=== PATIENT | female | born 1995 | race Caucasian/White ===

== ENCOUNTER 2018-05-11 06:50 | Day surgery (SDC) | payer OTHER ==
[2018-05-10 09:56] VITALS: BMI 30.1
[2018-05-11 07:32] VITALS: TEMP 98.5
[2018-05-11] MEDS ORDERED: KETAMINE HCL SYRINGES 150 MG/3 ML ONE (08:35)
--- NOTE | 2018-05-11 09:16 | HP ---
CHIEF COMPLAINT: Major depressive disorder PCP: None Primary Psychiatrist: Dr. Dumont [place] HISTORY OF PRESENT ILLNESS: 22 year-old female with a PMH significant for bipolar and major depressive disorders, presents today for ECT therapy. Patient's first ECT therapy was on at [place]. Recent Events: * none reported PAST MEDICAL HISTORY: Bipolar disorder Major depressive disorder PAST SURGICAL HISTORY: None Social History: lives in [place] with mother, unemployed Smoking: "I vape" Alcohol: denies Drugs: denies Allergies No Known Drug Allergies Allergy (Verified 05/10/18 09:41) HOME MEDICATIONS: Home Medications Medication Instructions Recorded Quetiapine Fumarate [Seroquel -] 200 mg PO HS 05/10/18 REVIEW OF SYSTEMS CONSTITUTIONAL: Absent: fever, chills, diaphoresis, generalized weakness, malaise, loss of appetite, weight change HEENT: Absent: rhinorrhea, nasal congestion, throat pain, throat swelling, difficulty swallowing, mouth swelling, ear pain, eye pain, visual changes CARDIOVASCULAR: Absent: chest pain, syncope, palpitations, irregular heart rate, lightheadedness , peripheral edema RESPIRATORY: Absent: cough, shortness of breath, dyspnea with exertion, orthopnea, wheezing, stridor, hemoptysis GASTROINTESTINAL: Absent: abdominal pain, abdominal distension, nausea, vomiting, diarrhea, constipation, melena, hematochezia GENITOURINARY: Absent: dysuria, frequency, urgency, hesitancy, hematuria, flank pain, genital pain MUSCULOSKELETAL: Absent: myalgia, arthralgia, joint swelling, back pain, neck pain SKIN: Absent: rash, itching, pallor HEMATOLOGIC/IMMUNOLOGIC: Absent: easy bleeding, easy bruising, lymphadenopathy, frequent infections ENDOCRINE: Absent: unexplained weight gain, unexplained weight loss, heat intolerance, cold intolerance NEUROLOGIC: Absent: headache, focal weakness or paresthesias, dizziness, unsteady gait, seizure, mental status changes, bladder or bowel incontinence PHYSICAL EXAMINATION Vital Signs - 24 hr 05/11/18 05/11/18 05/11/18 07:23 09:00 09:05 Temperature 98.5 F Pulse Rate 74 99 H 92 H Respiratory 18 16 14 Rate Blood Pressure 97/51 L 120/62 108/70 O2 Sat by Pulse 98 95 100 Oximetry (%) GENERAL: Awake, alert, and fully oriented, in no acute distress. HEAD: Normal with no signs of trauma. EYES: Pupils equal, round and reactive to light, sclera anicteric, conjunctiva clear. LUNGS: Breath sounds equal, clear to auscultation bilaterally. No wheezes, and no crackles. No accessory muscle use. HEART: Regular rate and rhythm, normal S1 and S2 ABDOMEN: Soft, nontender, not distended MUSCULOSKELETAL: Normal range of motion at all joints. No bony deformities or tenderness. No CVA tenderness. UPPER EXTREMITIES: 2+ pulses, warm, well-perfused. No cyanosis. No clubbing. No peripheral edema. LOWER EXTREMITIES: 2+ pulses, warm, well-perfused. No calf tenderness. No peripheral edema. NEUROLOGICAL: Cranial nerves II-XII intact. Normal speech. Laboratory Results - last 24 hr 05/11/18 07:35 Urine HCG, Qual Negative ASSESSMENT/PLAN: 22 year-old female with a PMH significant for bipolar and major depressive disorders, presents today for ECT therapy. Cardiac --no cardiac history --Revised Cardiac Risk Index for Pre-Operative Risk: 0 points, 0.4% risk of major cardiac event Pulmonary --no pulmonary history Neurological --no neurological or neurosurgical history; no history of trauma Anesthesia --no reported problems with anesthesia ECT is a low risk procedure. The relative benefits of the planned procedure outweigh the relative risks for this patient at this time. Visit type - Emergency Visit Emergency Visit: No - New Patient This patient is new to me today: Yes Date on this admission: 05/11/18 - Critical Care Critical Care patient: No
[2018-05-11 10:43] VITALS: BP 103/73; PULSE 69
[2018-05-11] MEDS ORDERED: ONDANSETRON 4 MG/2 ML VIAL IVPUSH PRN (12:05)
[2018-05-11] MEDS ORDERED: LACTATED RINGERS SOLUTION 1,000 ML IV SCH (12:15)
== END 2018-05-11 10:00 | disposition home or self-care (01) ==
LOC: FECT 06:50
PROVIDERS: ATTEND Psychiatry & Neurology Psychiatry
PROC: GZB4ZZZ Other Electroconvulsive Therapy (ICD-10-PCS; principal; 2018-05-11 08:15)
DX: F31.60 Bipolar disorder, current episode mixed, unspecified (principal); F33.9 Major depressive disorder, recurrent, unspecified
CPT/HCPCS: 84703; 90870; 94760

== ENCOUNTER 2018-05-12 05:43 | Day surgery (SDC) | payer OTHER ==
[2018-05-11 10:47] VITALS: BMI 30.1
[2018-05-12 10:26] VITALS: TEMP 97.9
[2018-05-12 10:32] VITALS: BP 122/76; PULSE 86
== END 2018-05-12 09:00 | disposition home or self-care (01) ==
LOC: FECT 05:43
PROVIDERS: ATTEND Psychiatry & Neurology Psychiatry
PROC: GZB4ZZZ Other Electroconvulsive Therapy (ICD-10-PCS; principal; 2018-05-12 07:30)
DX: F31.60 Bipolar disorder, current episode mixed, unspecified (principal); F33.9 Major depressive disorder, recurrent, unspecified
CPT/HCPCS: 90870; 94760

== ENCOUNTER 2018-05-17 05:44 | Day surgery (SDC) | payer OTHER ==
[2018-05-17 06:46] VITALS: TEMP 98.2; BMI 30.1
[2018-05-17 09:39] VITALS: BP 121/81; PULSE 105
== END 2018-05-17 08:20 | disposition home or self-care (01) ==
LOC: FECT 05:44
PROVIDERS: ATTEND Psychiatry & Neurology Psychiatry
PROC: GZB4ZZZ Other Electroconvulsive Therapy (ICD-10-PCS; principal; 2018-05-17 07:15)
DX: F31.9 Bipolar disorder, unspecified (principal)
CPT/HCPCS: 84703; 90870; 94760

== ENCOUNTER 2018-05-19 05:49 | Day surgery (SDC) | payer OTHER ==
[2018-05-19 07:36] VITALS: BMI 30.1
[2018-05-19 09:49] VITALS: BP 116/72; PULSE 86; TEMP 98.5
[2018-05-19] MEDS ORDERED: LACTATED RINGERS SOLUTION 1,000 ML IV SCH (16:45)
== END 2018-05-19 09:20 | disposition home or self-care (01) ==
LOC: FECT 05:49
PROVIDERS: ATTEND Psychiatry & Neurology Psychiatry
PROC: GZB4ZZZ Other Electroconvulsive Therapy (ICD-10-PCS; principal; 2018-05-19 07:00)
DX: F31.9 Bipolar disorder, unspecified (principal)
CPT/HCPCS: 90870; 94760

== ENCOUNTER 2018-08-31 06:59 | Day surgery (SDC) | payer OTHER ==
--- NOTE | 2018-08-31 07:26 | HP ---
Patient Name: Becca SNIDER Record Number: [id number] Date of : [birth year] Patient Status: Surgical Day Care Attending Provider: Larry Horn Date: 08/31/2018 Initialization Date: 05/11/18 09:12 CHIEF COMPLAINT: Major depressive disorder PCP: None Primary Psychiatrist: Jeronimo Armando [place] HISTORY OF PRESENT ILLNESS: 22 year-old female with a PMH significant for bipolar and major depressive disorders, presents today for ECT therapy. Patient's first ECT therapy was on at [place]. Recent Events: * Patient states she has an abnomal Pap smear last month-no treatment & will follow up with [facility] in 2 years PAST MEDICAL HISTORY: Bipolar disorder Major depressive disorder PAST SURGICAL HISTORY: None Social History: lives in [place] with mother, unemployed Smoking: "I vape" Alcohol: denies Drugs: denies Allergies No Known Drug Allergies Allergy (Verified 09/03/2018 HOME MEDICATIONS: Home Medications Medication Instructions Recorded Quetiapine Fumarate [Seroquel -] 200 mg PO HS 05/10/18 REVIEW OF SYSTEMS CONSTITUTIONAL: Absent: fever, chills, diaphoresis, generalized weakness, malaise, loss of appetite, weight change HEENT: Absent: rhinorrhea, nasal congestion, throat pain, throat swelling, difficulty swallowing, mouth swelling, ear pain, eye pain, visual changes CARDIOVASCULAR: Absent: chest pain, syncope, palpitations, irregular heart rate, lightheadedness , peripheral edema RESPIRATORY: Absent: cough, shortness of breath, dyspnea with exertion, orthopnea, wheezing, stridor, hemoptysis GASTROINTESTINAL: Absent: abdominal pain, abdominal distension, nausea, vomiting, diarrhea, constipation, melena, hematochezia GENITOURINARY: Absent: dysuria, frequency, urgency, hesitancy, hematuria, flank pain, genital pain MUSCULOSKELETAL: Absent: myalgia, arthralgia, joint swelling, back pain, neck pain SKIN: Absent: rash, itching, pallor HEMATOLOGIC/IMMUNOLOGIC: Absent: easy bleeding, easy bruising, lymphadenopathy, frequent infections ENDOCRINE: Absent: unexplained weight gain, unexplained weight loss, heat intolerance, cold intolerance NEUROLOGIC: Absent: headache, focal weakness or paresthesias, dizziness, unsteady gait, seizure, mental status changes, bladder or bowel incontinence PHYSICAL EXAMINATION Vital Signs - 24 hr 05/11/18 05/11/18 05/11/18 07:23 09:00 09:05 Temperature 98.5 F Pulse Rate 74 99 H 92 H Respiratory 18 16 14 Rate Blood Pressure 97/51 L 120/62 108/70 O2 Sat by Pulse 98 95 100 Oximetry (%) GENERAL: Awake, alert, and fully oriented, in no acute distress. HEAD: Normal with no signs of trauma. EYES: Pupils equal, round and reactive to light, sclera anicteric, conjunctiva clear. LUNGS: Breath sounds equal, clear to auscultation bilaterally. No wheezes, and no crackles. No accessory muscle use. HEART: Regular rate and rhythm, normal S1 and S2 ABDOMEN: Soft, nontender, not distended MUSCULOSKELETAL: Normal range of motion at all joints. No bony deformities or tenderness. No CVA tenderness. UPPER EXTREMITIES: 2+ pulses, warm, well-perfused. No cyanosis. No clubbing. No peripheral edema. LOWER EXTREMITIES: 2+ pulses, warm, well-perfused. No calf tenderness. No peripheral edema. NEUROLOGICAL: Cranial nerves II-XII intact. Normal speech. Laboratory Results - last 24 hr 05/11/18 07:35 Urine HCG, Qual Negative ASSESSMENT/PLAN: 22 year-old female with a PMH significant for bipolar and major depressive disorders, presents today for ECT therapy. Cardiac --no cardiac history --Revised Cardiac Risk Index for Pre-Operative Risk: 0 points, 0.4% risk of major cardiac event Pulmonary --no pulmonary history Neurological --no neurological or neurosurgical history; no history of trauma Anesthesia --no reported problems with anesthesia ECT is a low risk procedure. The relative benefits of the planned procedure outweigh the relative risks for this patient at this time. Visit type - Emergency Visit Emergency Visit: No - New Patient This patient is new to me today: Yes Date on this admission: 05/11/18 - Critical Care Critical Care patient: No
--- NOTE | 2018-08-31 07:27 | HP ---
CHIEF COMPLAINT: PCP: Larry Horn Primary Psychiatrist:Dr. Dumont [place] HISTORY OF PRESENT ILLNESS: 22 year-old female with a PMH significant for bipolar and major depressive disorders, presents today for ECT therapy. Patient's first ECT therapy was on at [place]. Recent Events: * Patient states she has an abnomal Pap smear last month-no treatment & will follow up with [facility] in 2 years PAST MEDICAL HISTORY: Bipolar Major depressive disorder PAST SURGICAL HISTORY: Social History: lives in [place] with mother, unemployed Smoking: stopped vaping Alcohol: denies Drugs: denies Allergies No Known Drug Allergies Allergy (Verified 09/03/2018 HOME MEDICATIONS: Home Medications Medication Instructions Recorded Quetiapine Fumarate [Seroquel -] 200 mg PO HS 05/10/18 Alprazolam [Xanax] 0.25 mg PO Q8H PRN 05/17/18 REVIEW OF SYSTEMS CONSTITUTIONAL: Absent: fever, chills, diaphoresis, generalized weakness, malaise, loss of appetite, weight change HEENT: Absent: rhinorrhea, nasal congestion, throat pain, throat swelling, difficulty swallowing, mouth swelling, ear pain, eye pain, visual changes CARDIOVASCULAR: Absent: chest pain, syncope, palpitations, irregular heart rate, lightheadedness , peripheral edema RESPIRATORY: Absent: cough, shortness of breath, dyspnea with exertion, orthopnea, wheezing, stridor, hemoptysis GASTROINTESTINAL: Absent: abdominal pain, abdominal distension, nausea, vomiting, diarrhea, constipation, melena, hematochezia GENITOURINARY: Absent: dysuria, frequency, urgency, hesitancy, hematuria, flank pain, genital pain MUSCULOSKELETAL: Absent: myalgia, arthralgia, joint swelling, back pain, neck pain SKIN: Absent: rash, itching, pallor HEMATOLOGIC/IMMUNOLOGIC: Absent: easy bleeding, easy bruising, lymphadenopathy, frequent infections ENDOCRINE: Absent: unexplained weight gain, unexplained weight loss, heat intolerance, cold intolerance NEUROLOGIC: Absent: headache, focal weakness or paresthesias, dizziness, unsteady gait, seizure, mental status changes, bladder or bowel incontinence PHYSICAL EXAMINATION GENERAL: Awake, alert, and fully oriented, in no acute distress. HEAD: Normal with no signs of trauma. EYES: Pupils equal, round and reactive to light, sclera anicteric, conjunctiva clear. LUNGS: Breath sounds equal, clear to auscultation bilaterally. No wheezes, and no crackles. No accessory muscle use. HEART: Regular rate and rhythm, normal S1 and S2 ABDOMEN: Soft, nontender, not distended MUSCULOSKELETAL: Normal range of motion at all joints. No bony deformities or tenderness. No CVA tenderness. UPPER EXTREMITIES: 2+ pulses, warm, well-perfused. No cyanosis. No clubbing. No peripheral edema. LOWER EXTREMITIES: 2+ pulses, warm, well-perfused. No calf tenderness. No peripheral edema. NEUROLOGICAL: Cranial nerves II-XII intact. Normal speech. ASSESSMENT/PLAN: 22 year-old female with a PMH significant for bipolar and major depressive disorders, presents today for ECT therapy. T 98, HR 92, BP 111/73 O2 97% on RA Cardiac --no cardiac history --Revised Cardiac Risk Index for Pre-Operative Risk: 0 points, 0.4% risk of major cardiac event Pulmonary --no pulmonary history Neurological --no neurological or neurosurgical history; no history of trauma Anesthesia --no reported problems with anesthesia ECT is a low risk procedure. The relative benefits of the planned procedure outweigh the relative risks for this patient at this time. Problem List - Problem (1) Major depressive disorder Assessment/Plan: continue home dose of seroquel 200mg & xnanax 0.25 mg PRN no contraindications for planned ECT Code(s): F32.9 - MAJOR DEPRESSIVE DISORDER, SINGLE EPISODE, UNSPECIFIED (2) Bipolar 1 disorder Code(s): F31.9 - BIPOLAR DISORDER, UNSPECIFIED Visit type - Emergency Visit Emergency Visit: No - New Patient This patient is new to me today: Yes Date on this admission: 08/31/18 - Critical Care Critical Care patient: No
[2018-08-31 07:37] VITALS: TEMP 98; BMI 33.7
[2018-08-31] MEDS ORDERED: KETAMINE HCL 500 MG/10 ML VIAL ONE (08:04)
[2018-08-31 09:44] VITALS: BP 113/73; PULSE 88
== END 2018-08-31 09:20 | disposition home or self-care (01) ==
LOC: SUATTDRO 06:59 → FECT 06:59
PROVIDERS: ATTEND Psychiatry & Neurology Psychiatry
PROC: GZB4ZZZ Other Electroconvulsive Therapy (ICD-10-PCS; principal; 2018-08-31 07:45)
DX: F31.60 Bipolar disorder, current episode mixed, unspecified (principal)
CPT/HCPCS: 81025; 90870; 94760

== ENCOUNTER 2018-09-08 05:48 | Day surgery (SDC) | payer OTHER ==
[2018-08-31 12:37] VITALS: BMI 33.7
[2018-09-08 08:37] VITALS: TEMP 98.1
[2018-09-08 08:38] VITALS: BP 102/61; PULSE 71
== END 2018-09-08 08:42 | disposition home or self-care (01) ==
LOC: FECT 05:48
PROVIDERS: ATTEND Psychiatry & Neurology Psychiatry
PROC: GZB4ZZZ Other Electroconvulsive Therapy (ICD-10-PCS; principal; 2018-09-08 07:45)
DX: F31.89 Other bipolar disorder (principal)
CPT/HCPCS: 81025; 90870; 94760

== ENCOUNTER 2018-09-15 05:43 | Day surgery (SDC) | payer OTHER ==
[2018-09-08 10:51] VITALS: BMI 33.7
[2018-09-15] MEDS ORDERED: LACTATED RINGERS SOLUTION 1,000 ML IV SCH (07:00)
[2018-09-15 07:22] VITALS: TEMP 97.8
[2018-09-15 10:08] VITALS: BP 107/77; PULSE 88
== END 2018-09-15 09:25 | disposition home or self-care (01) ==
LOC: FECT 05:43
PROVIDERS: ATTEND Psychiatry & Neurology Psychiatry
PROC: GZB4ZZZ Other Electroconvulsive Therapy (ICD-10-PCS; principal; 2018-09-15 07:15)
DX: F31.60 Bipolar disorder, current episode mixed, unspecified (principal)
CPT/HCPCS: 81025; 90870; 94760

== ENCOUNTER 2018-09-18 05:48 | Day surgery (SDC) | payer OTHER ==
[2018-09-15 11:39] VITALS: BMI 33.7
[2018-09-18] MEDS ORDERED: ACETAMINOPHEN 500 MG TABLET (FP) PO PRN (07:28)
[2018-09-18] MEDS ORDERED: PROMETHAZINE HCL 25 MG/1 ML VIAL IVPUSH PRN (07:28)
[2018-09-18] MEDS ORDERED: LACTATED RINGERS SOLUTION 1,000 ML IV SCH (07:30)
[2018-09-18 08:34] VITALS: TEMP 98.4
[2018-09-18 08:43] VITALS: BP 112/63; PULSE 76
== END 2018-09-18 08:45 | disposition home or self-care (01) ==
LOC: FECT 05:48
PROVIDERS: ATTEND Psychiatry & Neurology Psychiatry
PROC: GZB4ZZZ Other Electroconvulsive Therapy (ICD-10-PCS; principal; 2018-09-18 07:15)
DX: F31.60 Bipolar disorder, current episode mixed, unspecified (principal)
CPT/HCPCS: 90870; 94760

== ENCOUNTER 2018-10-03 07:20 | Day surgery (SDC) | payer OTHER ==
--- NOTE | 2018-10-03 07:30 | HP ---
CHIEF COMPLAINT: Major depressive disorder PCP: None Primary Psychiatrist: Dr. Dumont [place] HISTORY OF PRESENT ILLNESS: 22 year-old female with a PMH significant for bipolar and major depressive disorders, presents today for ECT therapy. Patient's first ECT therapy was on at [place]. Recent Events: (mother provides, patient not speaking, no eye contact) * URI few weeks ago, considered viral, no antibiotics * following with [facility] re: irregular PAP and IUD exchange PAST MEDICAL HISTORY: Bipolar disorder Major depressive disorder PAST SURGICAL HISTORY: None Social History: lives in [place] with mother, unemployed Smoking: denies Alcohol: denies Drugs: denies Allergies No Known Drug Allergies Allergy (Verified 05/10/18 09:41) HOME MEDICATIONS: Home Medications Medication Instructions Recorded Quetiapine Fumarate [Seroquel -] 100 mg PO HS 05/10/18 Alprazolam [Xanax] 0.25 mg PO HS PRN 05/17/18 Ondansetron HCl [Zofran] 8 mg PO DAILY PRN 08/31/18 REVIEW OF SYSTEMS CONSTITUTIONAL: Absent: fever, chills, diaphoresis, generalized weakness, malaise, loss of appetite, weight change HEENT: Absent: rhinorrhea, nasal congestion, throat pain, throat swelling, difficulty swallowing, mouth swelling, ear pain, eye pain, visual changes CARDIOVASCULAR: Absent: chest pain, syncope, palpitations, irregular heart rate, lightheadedness , peripheral edema RESPIRATORY: Absent: cough, shortness of breath, dyspnea with exertion, orthopnea, wheezing, stridor, hemoptysis GASTROINTESTINAL: Absent: abdominal pain, abdominal distension, nausea, vomiting, diarrhea, constipation, melena, hematochezia GENITOURINARY: Absent: dysuria, frequency, urgency, hesitancy, hematuria, flank pain, genital pain MUSCULOSKELETAL: Absent: myalgia, arthralgia, joint swelling, back pain, neck pain SKIN: Absent: rash, itching, pallor HEMATOLOGIC/IMMUNOLOGIC: Absent: easy bleeding, easy bruising, lymphadenopathy, frequent infections ENDOCRINE: Absent: unexplained weight gain, unexplained weight loss, heat intolerance, cold intolerance NEUROLOGIC: Absent: headache, focal weakness or paresthesias, dizziness, unsteady gait, seizure, mental status changes, bladder or bowel incontinence PHYSICAL EXAMINATION GENERAL: Awake, alert, and fully oriented, in no acute distress. HEAD: Normal with no signs of trauma. EYES: Pupils equal, round and reactive to light, sclera anicteric, conjunctiva clear. LUNGS: Breath sounds equal, clear to auscultation bilaterally. No wheezes, and no crackles. No accessory muscle use. HEART: Regular rate and rhythm, normal S1 and S2 ABDOMEN: Soft, nontender, not distended MUSCULOSKELETAL: Normal range of motion at all joints. No bony deformities or tenderness. No CVA tenderness. UPPER EXTREMITIES: 2+ pulses, warm, well-perfused. No cyanosis. No clubbing. No peripheral edema. LOWER EXTREMITIES: 2+ pulses, warm, well-perfused. No calf tenderness. No peripheral edema. NEUROLOGICAL: Cranial nerves II-XII intact. Normal speech. ASSESSMENT/PLAN: 22 year-old female with a PMH significant for bipolar and major depressive disorders, presents today for ECT therapy. Cardiac --no cardiac history --Revised Cardiac Risk Index for Pre-Operative Risk: 0 points, 0.4% risk of major cardiac event Pulmonary --no pulmonary history Neurological --no neurological or neurosurgical history; no history of trauma Anesthesia --no reported problems with anesthesia ECT is a low risk procedure. The relative benefits of the planned procedure outweigh the relative risks for this patient at this time. Visit type - Emergency Visit Emergency Visit: No - New Patient This patient is new to me today: Yes Date on this admission: 10/03/18 - Critical Care Critical Care patient: No
[2018-10-03 07:51] VITALS: BMI 33.7
[2018-10-03 10:03] VITALS: TEMP 98.7
[2018-10-03 10:18] VITALS: BP 108/78; PULSE 72
== END 2018-10-03 10:10 | disposition home or self-care (01) ==
LOC: FECT 07:20
PROVIDERS: ATTEND Psychiatry & Neurology Psychiatry
PROC: GZB4ZZZ Other Electroconvulsive Therapy (ICD-10-PCS; principal; 2018-10-03 08:15)
DX: F31.60 Bipolar disorder, current episode mixed, unspecified (principal)
CPT/HCPCS: 81025; 90870; 94760

== ENCOUNTER 2018-10-11 06:59 | Day surgery (SDC) | payer OTHER ==
[2018-10-11 07:17] VITALS: BMI 33.6
[2018-10-11 09:35] VITALS: TEMP 97.7
[2018-10-11 09:38] VITALS: BP 110/60; PULSE 73
== END 2018-10-11 09:30 | disposition home or self-care (01) ==
LOC: FECT 06:59
PROVIDERS: ATTEND Psychiatry & Neurology Psychiatry
PROC: GZB4ZZZ Other Electroconvulsive Therapy (ICD-10-PCS; principal; 2018-10-11 07:30)
DX: F31.62 Bipolar disorder, current episode mixed, moderate (principal)
CPT/HCPCS: 81025; 90870; 94760

== ENCOUNTER 2018-10-17 05:49 | Day surgery (SDC) | payer OTHER ==
[2018-10-13 15:31] VITALS: BMI 33.7
[2018-10-17] MEDS ORDERED: oxyCODONE HCL 5 MG TABLET PO PRN (08:48)
[2018-10-17 09:42] VITALS: TEMP 97.9
[2018-10-17 09:48] VITALS: BP 112/61; PULSE 79
== END 2018-10-17 09:50 | disposition home or self-care (01) ==
LOC: FECT 05:49
PROVIDERS: ATTEND Psychiatry & Neurology Psychiatry
PROC: GZB4ZZZ Other Electroconvulsive Therapy (ICD-10-PCS; principal; 2018-10-17 08:30)
DX: F31.62 Bipolar disorder, current episode mixed, moderate (principal)
CPT/HCPCS: 81025; 90870; 94760

== ENCOUNTER 2018-10-24 05:39 | Day surgery (SDC) | payer OTHER | END 2018-10-25 08:45 | disposition home or self-care (01) | LOC: FECT 05:39 ==

== ENCOUNTER 2018-11-10 05:41 | Day surgery (SDC) | payer OTHER ==
[2018-11-10 07:11] VITALS: BMI 29.7
[2018-11-10 07:14] LABS: BASO % 0.7 % (0-2.0); EOS % 1.2 % (0-4.5); HEMATOCRIT 39.5 % (32.4-45.2); HEMOGLOBIN 13.2 GM/dl (10.7-15.3); LYMPH % 43.3 % (8-40); MCH 29.6 pg (25.7-33.7); MCHC 33.3 g/dl (32.0-36.0); MEAN CELL VOLUME 88.8 fl (80-96); MEAN PLT VOLUME 6.8 fl (7.5-11.1); MONO % 8.6 % (3.8-10.2); NEUT % 46.2 % (42.8-82.8); PLATELET COUNT 409 K/MM3 (134-434); RBC 4.45 M/mm3 (3.60-5.2); RDW 13.7 % (11.6-15.6)
[2018-11-10 07:19] LABS: CALCIUM 8.8 mg/dl (8.5-10); CREATININE 0.7 mg/dl (0.55-1.3); POTASSIUM 3.9 mmol/L (3.5-5.1)
[2018-11-10 08:51] VITALS: TEMP 97.8
[2018-11-10 10:20] VITALS: BP 116/64; PULSE 76
--- NOTE | 2018-11-14 09:38 | EKG ---
Test Reason : Blood Pressure : / mmHG Vent. Rate : 072 BPM Atrial Rate : 072 BPM P-R Int : 158 ms QRS Dur : 092 ms QT Int : 412 ms P-R-T Axes : 000 107 136 degrees QTc Int : 451 ms NORMAL SINUS RHYTHM LATERAL INFARCT , AGE UNDETERMINED ABNORMAL ECG NO PREVIOUS ECGS AVAILABLE Confirmed by Cornell Evangelista MD ([id number]) on 11/14/2018 9:38:43 AM Referred By: Larry Horn Confirmed By:Cornell Evangelista MD
--- NOTE | 2018-11-14 10:19 | HP ---
CHIEF COMPLAINT: Major depressive disorder PCP: None Primary Psychiatrist: Dr. Dumont [place] HISTORY OF PRESENT ILLNESS: 22 year-old female with a PMH significant for bipolar and major depressive disorders, presents today for ECT therapy. Patient's first ECT therapy was on at [place]. Recent Events: * none reported * PAST MEDICAL HISTORY: Bipolar disorder Major depressive disorder PAST SURGICAL HISTORY: None Social History: lives in [place] with mother, unemployed Smoking: denies Alcohol: denies Drugs: denies Family history: non-contributory Allergies No Known Drug Allergies Allergy (Verified 05/10/18 09:41) HOME MEDICATIONS: Home Medications Medication Instructions Recorded Quetiapine Fumarate [Seroquel -] 100 mg PO HS 05/10/18 REVIEW OF SYSTEMS CONSTITUTIONAL: Absent: fever, chills, diaphoresis, generalized weakness, malaise, loss of appetite, weight change HEENT: Absent: rhinorrhea, nasal congestion, throat pain, throat swelling, difficulty swallowing, mouth swelling, ear pain, eye pain, visual changes CARDIOVASCULAR: Absent: chest pain, syncope, palpitations, irregular heart rate, lightheadedness , peripheral edema RESPIRATORY: Absent: cough, shortness of breath, dyspnea with exertion, orthopnea, wheezing, stridor, hemoptysis GASTROINTESTINAL: Absent: abdominal pain, abdominal distension, nausea, vomiting, diarrhea, constipation, melena, hematochezia GENITOURINARY: Absent: dysuria, frequency, urgency, hesitancy, hematuria, flank pain, genital pain MUSCULOSKELETAL: Absent: myalgia, arthralgia, joint swelling, back pain, neck pain SKIN: Absent: rash, itching, pallor HEMATOLOGIC/IMMUNOLOGIC: Absent: easy bleeding, easy bruising, lymphadenopathy, frequent infections ENDOCRINE: Absent: unexplained weight gain, unexplained weight loss, heat intolerance, cold intolerance NEUROLOGIC: Absent: headache, focal weakness or paresthesias, dizziness, unsteady gait, seizure, mental status changes, bladder or bowel incontinence PHYSICAL EXAMINATION Vital Signs Temperature 97.8 F 11/10/18 09:30 Pulse Rate 76 11/10/18 09:30 Respiratory Rate 18 11/10/18 09:30 Blood Pressure 116/64 11/10/18 09:30 O2 Sat by Pulse Oximetry (%) 98 11/10/18 09:20 GENERAL: Awake, alert, and fully oriented, in no acute distress. HEAD: Normal with no signs of trauma. EYES: Pupils equal, round and reactive to light, sclera anicteric, conjunctiva clear. LUNGS: Breath sounds equal, clear to auscultation bilaterally. No wheezes, and no crackles. No accessory muscle use. HEART: Regular rate and rhythm, normal S1 and S2 ABDOMEN: Soft, nontender, not distended MUSCULOSKELETAL: Normal range of motion at all joints. No bony deformities or tenderness. No CVA tenderness. UPPER EXTREMITIES: 2+ pulses, warm, well-perfused. No cyanosis. No clubbing. No peripheral edema. LOWER EXTREMITIES: 2+ pulses, warm, well-perfused. No calf tenderness. No peripheral edema. NEUROLOGICAL: Cranial nerves II-XII intact. Normal speech. ASSESSMENT/PLAN: 22 year-old female with a PMH significant for bipolar and major depressive disorders, presents today for ECT therapy. Cardiac --no cardiac history --Revised Cardiac Risk Index for Pre-Operative Risk: 0 points, 0.4% risk of major cardiac event Pulmonary --no pulmonary history Neurological --no neurological or neurosurgical history; no history of trauma Anesthesia --no reported problems with anesthesia ECT is a low risk procedure. The relative benefits of the planned procedure outweigh the relative risks for this patient at this time. Visit type - Emergency Visit Emergency Visit: No - New Patient This patient is new to me today: Yes Date on this admission: 11/14/18 - Critical Care Critical Care patient: No
== END 2018-11-10 09:30 | disposition home or self-care (01) ==
LOC: FECT 05:41
PROVIDERS: ATTEND Psychiatry & Neurology Psychiatry
PROC: GZB4ZZZ Other Electroconvulsive Therapy (ICD-10-PCS; principal; 2018-11-10 07:15)
DX: F31.89 Other bipolar disorder (principal)
CPT/HCPCS: 36415; 80048; 84703; 85025; 90870; 93005; 93010; 94760

== ENCOUNTER 2018-11-15 05:52 | Day surgery (SDC) | payer OTHER ==
[2018-11-10 16:58] VITALS: BMI 29.7
[2018-11-15] MEDS ORDERED: LACTATED RINGERS SOLUTION 1,000 ML IV SCH (07:00)
[2018-11-15 08:54] VITALS: PULSE 89; TEMP 98.9
[2018-11-15 08:59] VITALS: BP 115/72
== END 2018-11-15 08:45 | disposition home or self-care (01) ==
LOC: FECT 05:52
PROVIDERS: ATTEND Psychiatry & Neurology Psychiatry
PROC: GZB4ZZZ Other Electroconvulsive Therapy (ICD-10-PCS; principal; 2018-11-15 07:15)
DX: F31.9 Bipolar disorder, unspecified (principal)
CPT/HCPCS: 81025; 90870; 94760

== ENCOUNTER 2018-11-28 06:57 | Day surgery (SDC) | payer OTHER | END 2018-11-28 10:00 | disposition home or self-care (01) | LOC: FECT 06:57 ==

== ENCOUNTER 2018-12-21 05:45 | Day surgery (SDC) | payer OTHER ==
[2018-12-21 08:11] VITALS: TEMP 97.5; BMI 28.5
--- NOTE | 2018-12-21 08:23 | HP ---
CHIEF COMPLAINT: Major depressive disorder PCP: None Primary Psychiatrist: Dr. Dumont [place] HISTORY OF PRESENT ILLNESS: 22 year-old female with a PMH significant for bipolar and major depressive disorders, presents today for ECT therapy. Patient's first ECT therapy was on at [place]. Recent Events: * none reported * PAST MEDICAL HISTORY: Bipolar disorder Major depressive disorder PAST SURGICAL HISTORY: None Social History: lives in [place] with mother, unemployed Smoking: denies Alcohol: denies Drugs: denies Family history: non-contributory Allergies No Known Drug Allergies Allergy (Verified 10/30/18 17:17) HOME MEDICATIONS: Home Medications Medication Instructions Recorded Quetiapine Fumarate [Seroquel -] 100 mg PO HS 05/10/18 Alprazolam [Xanax] 0.25 mg PO Q8H PRN 12/21/18 REVIEW OF SYSTEMS CONSTITUTIONAL: Absent: fever, chills, diaphoresis, generalized weakness, malaise, loss of appetite, weight change HEENT: Absent: rhinorrhea, nasal congestion, throat pain, throat swelling, difficulty swallowing, mouth swelling, ear pain, eye pain, visual changes CARDIOVASCULAR: Absent: chest pain, syncope, palpitations, irregular heart rate, lightheadedness , peripheral edema RESPIRATORY: Absent: cough, shortness of breath, dyspnea with exertion, orthopnea, wheezing, stridor, hemoptysis GASTROINTESTINAL: Absent: abdominal pain, abdominal distension, nausea, vomiting, diarrhea, constipation, melena, hematochezia GENITOURINARY: Absent: dysuria, frequency, urgency, hesitancy, hematuria, flank pain, genital pain MUSCULOSKELETAL: Absent: myalgia, arthralgia, joint swelling, back pain, neck pain SKIN: Absent: rash, itching, pallor HEMATOLOGIC/IMMUNOLOGIC: Absent: easy bleeding, easy bruising, lymphadenopathy, frequent infections ENDOCRINE: Absent: unexplained weight gain, unexplained weight loss, heat intolerance, cold intolerance NEUROLOGIC: Absent: headache, focal weakness or paresthesias, dizziness, unsteady gait, seizure, mental status changes, bladder or bowel incontinence PHYSICAL EXAMINATION Vital Signs - 24 hr 12/21/18 08:07 Temperature 97.5 F L Pulse Rate 81 Respiratory 18 Rate Blood Pressure 122/73 O2 Sat by Pulse 97 Oximetry (%) GENERAL: Awake, alert, and fully oriented, in no acute distress. HEAD: Normal with no signs of trauma. EYES: Pupils equal, round and reactive to light, sclera anicteric, conjunctiva clear. LUNGS: Breath sounds equal, clear to auscultation bilaterally. No wheezes, and no crackles. No accessory muscle use. HEART: Regular rate and rhythm, normal S1 and S2 ABDOMEN: Soft, nontender, not distended MUSCULOSKELETAL: Normal range of motion at all joints. No bony deformities or tenderness. No CVA tenderness. UPPER EXTREMITIES: 2+ pulses, warm, well-perfused. No cyanosis. No clubbing. No peripheral edema. LOWER EXTREMITIES: 2+ pulses, warm, well-perfused. No calf tenderness. No peripheral edema. NEUROLOGICAL: Cranial nerves II-XII intact. Normal speech. Laboratory Results - last 24 hr 12/21/18 08:00 Urine HCG, Qual Negative ASSESSMENT/PLAN: 22 year-old female with a PMH significant for bipolar and major depressive disorders, presents today for ECT therapy. Cardiac --no cardiac history --Revised Cardiac Risk Index for Pre-Operative Risk: 0 points, 0.4% risk of major cardiac event Pulmonary --no pulmonary history Neurological --no neurological or neurosurgical history; no history of trauma Anesthesia --no reported problems with anesthesia ECT is a low risk procedure. The relative benefits of the planned procedure outweigh the relative risks for this patient at this time. Visit type - Emergency Visit Emergency Visit: No - New Patient This patient is new to me today: Yes Date on this admission: 12/21/18 - Critical Care Critical Care patient: No
[2018-12-21] MEDS ORDERED: ACETAMINOPHEN 325 MG TABLET (FP) PO PRN (08:58)
[2018-12-21] MEDS ORDERED: ONDANSETRON 4 MG/2 ML VIAL IVPUSH PRN (08:58)
[2018-12-21 09:55] VITALS: BP 110/67; PULSE 72
== END 2018-12-21 09:35 | disposition home or self-care (01) ==
LOC: FECT 05:45
PROVIDERS: ATTEND Psychiatry & Neurology Psychiatry
PROC: GZB4ZZZ Other Electroconvulsive Therapy (ICD-10-PCS; principal; 2018-12-21 08:15)
DX: F31.9 Bipolar disorder, unspecified (principal)
CPT/HCPCS: 84703; 90870; 94760

== ENCOUNTER 2018-12-29 05:43 | Day surgery (SDC) | payer OTHER ==
[2018-12-22 11:24] VITALS: BMI 28.5
[2018-12-29 07:01] VITALS: TEMP 98
[2018-12-29] MEDS ORDERED: LACTATED RINGERS SOLUTION 1,000 ML IV SCH (07:45)
[2018-12-29 08:37] VITALS: BP 116/76; PULSE 82
== END 2018-12-29 08:45 | disposition home or self-care (01) ==
LOC: FECT 05:43
PROVIDERS: ATTEND Psychiatry & Neurology Psychiatry
PROC: GZB4ZZZ Other Electroconvulsive Therapy (ICD-10-PCS; principal; 2018-12-29 07:00)
DX: F31.32 Bipolar disorder, current episode depressed, moderate (principal)
CPT/HCPCS: 81025; 90870; 94760

== ENCOUNTER 2019-01-04 05:41 | Day surgery (SDC) | payer OTHER ==
[2018-12-29 12:44] VITALS: BMI 28.5
[2019-01-04 08:39] VITALS: TEMP 98.1
[2019-01-04 08:40] VITALS: BP 102/71; PULSE 79
== END 2019-01-04 08:40 | disposition home or self-care (01) ==
LOC: FECT 05:41
PROVIDERS: ATTEND Psychiatry & Neurology Psychiatry
PROC: GZB4ZZZ Other Electroconvulsive Therapy (ICD-10-PCS; principal; 2019-01-04 07:45)
DX: F31.89 Other bipolar disorder (principal)
CPT/HCPCS: 81025; 90870; 94760

== ENCOUNTER 2019-01-09 05:44 | Day surgery (SDC) | payer OTHER ==
[2019-01-09 07:00] VITALS: BMI 28.5
[2019-01-09 08:22] VITALS: BP 94/63; PULSE 74; TEMP 98.8
== END 2019-01-09 08:20 | disposition home or self-care (01) ==
LOC: FECT 05:44
PROVIDERS: ATTEND Psychiatry & Neurology Psychiatry
PROC: GZB4ZZZ Other Electroconvulsive Therapy (ICD-10-PCS; principal; 2019-01-09 07:45)
DX: F31.32 Bipolar disorder, current episode depressed, moderate (principal)
CPT/HCPCS: 81025; 90870; 94760

== ENCOUNTER 2019-01-16 05:47 | Day surgery (SDC) | payer OTHER ==
[2019-01-16 06:45] VITALS: BMI 28.5
[2019-01-16 09:01] VITALS: TEMP 97.7
[2019-01-16 09:10] VITALS: BP 99/60; PULSE 77
== END 2019-01-16 09:15 | disposition home or self-care (01) ==
LOC: FECT 05:47
PROVIDERS: ATTEND Psychiatry & Neurology Psychiatry
PROC: GZB4ZZZ Other Electroconvulsive Therapy (ICD-10-PCS; principal; 2019-01-16 08:00)
DX: F31.32 Bipolar disorder, current episode depressed, moderate (principal)
CPT/HCPCS: 81025; 90870; 94760

== ENCOUNTER 2019-01-26 05:33 | Day surgery (SDC) | payer OTHER ==
[2019-01-26 07:13] VITALS: BMI 28.0
--- NOTE | 2019-01-26 07:24 | HP ---
CHIEF COMPLAINT: Major depressive disorder PCP: None Primary Psychiatrist: Dr. Dumont [place] HISTORY OF PRESENT ILLNESS: 22 year-old female with a PMH significant for bipolar and major depressive disorders, presents today for ECT therapy. Patient's first ECT therapy was on at [facility]. Recent Events: * none reported * PAST MEDICAL HISTORY: Bipolar disorder Major depressive disorder PAST SURGICAL HISTORY: None Social History: lives in [place] with mother, unemployed Smoking: denies Alcohol: denies Drugs: denies Family history: non-contributory Allergies No Known Drug Allergies Allergy (Verified 10/30/18 17:17) HOME MEDICATIONS: Home Medications Medication Instructions Recorded Quetiapine Fumarate [Seroquel -] 100 mg PO HS 05/10/18 Alprazolam [Xanax] 0.25 mg PO Q8H PRN 12/21/18 Zolpidem Tartrate [Ambien] 10 mg PO HS 12/29/18 REVIEW OF SYSTEMS CONSTITUTIONAL: Absent: fever, chills, diaphoresis, generalized weakness, malaise, loss of appetite, weight change HEENT: Absent: rhinorrhea, nasal congestion, throat pain, throat swelling, difficulty swallowing, mouth swelling, ear pain, eye pain, visual changes CARDIOVASCULAR: Absent: chest pain, syncope, palpitations, irregular heart rate, lightheadedness , peripheral edema RESPIRATORY: Absent: cough, shortness of breath, dyspnea with exertion, orthopnea, wheezing, stridor, hemoptysis GASTROINTESTINAL: Absent: abdominal pain, abdominal distension, nausea, vomiting, diarrhea, constipation, melena, hematochezia GENITOURINARY: Absent: dysuria, frequency, urgency, hesitancy, hematuria, flank pain, genital pain MUSCULOSKELETAL: Absent: myalgia, arthralgia, joint swelling, back pain, neck pain SKIN: Absent: rash, itching, pallor HEMATOLOGIC/IMMUNOLOGIC: Absent: easy bleeding, easy bruising, lymphadenopathy, frequent infections ENDOCRINE: Absent: unexplained weight gain, unexplained weight loss, heat intolerance, cold intolerance NEUROLOGIC: Absent: headache, focal weakness or paresthesias, dizziness, unsteady gait, seizure, mental status changes, bladder or bowel incontinence PHYSICAL EXAMINATION Vital Signs - 24 hr 01/26/19 07:09 Temperature 7.5 F L Pulse Rate 82 Respiratory 18 Rate Blood Pressure 90/58 L O2 Sat by Pulse 98 Oximetry (%) GENERAL: Awake, alert, and fully oriented, in no acute distress. HEAD: Normal with no signs of trauma. EYES: Pupils equal, round and reactive to light, sclera anicteric, conjunctiva clear. LUNGS: Breath sounds equal, clear to auscultation bilaterally. No wheezes, and no crackles. No accessory muscle use. HEART: Regular rate and rhythm, normal S1 and S2 ABDOMEN: Soft, nontender, not distended MUSCULOSKELETAL: Normal range of motion at all joints. No bony deformities or tenderness. No CVA tenderness. UPPER EXTREMITIES: 2+ pulses, warm, well-perfused. No cyanosis. No clubbing. No peripheral edema. LOWER EXTREMITIES: 2+ pulses, warm, well-perfused. No calf tenderness. No peripheral edema. NEUROLOGICAL: Cranial nerves II-XII intact. Normal speech. ASSESSMENT/PLAN: 22 year-old female with a PMH significant for bipolar and major depressive disorders, presents today for ECT therapy. Cardiac --no cardiac history --Revised Cardiac Risk Index for Pre-Operative Risk: 0 points, 0.4% risk of major cardiac event Pulmonary --no pulmonary history Neurological --no neurological or neurosurgical history; no history of trauma Anesthesia --no reported problems with anesthesia ECT is a low risk procedure. The relative benefits of the planned procedure outweigh the relative risks for this patient at this time. Visit type - Emergency Visit Emergency Visit: No - New Patient This patient is new to me today: Yes Date on this admission: 01/29/19 - Critical Care Critical Care patient: No
[2019-01-26] MEDS ORDERED: LACTATED RINGERS SOLUTION 1,000 ML IV SCH (08:00)
[2019-01-26 09:45] VITALS: TEMP 98.1
[2019-01-26 10:03] VITALS: BP 110/66; PULSE 76
== END 2019-01-26 09:55 | disposition home or self-care (01) ==
LOC: FECT 05:33
PROVIDERS: ATTEND Psychiatry & Neurology Psychiatry
PROC: GZB4ZZZ Other Electroconvulsive Therapy (ICD-10-PCS; principal; 2019-01-26 07:00)
DX: F31.32 Bipolar disorder, current episode depressed, moderate (principal)
CPT/HCPCS: 84703; 90870; 94760

== ENCOUNTER 2019-02-01 05:43 | Day surgery (SDC) | payer OTHER ==
[2019-02-01 07:25] VITALS: BMI 28.0
[2019-02-01 09:10] VITALS: TEMP 97.9
[2019-02-01 09:27] VITALS: BP 105/60; PULSE 82
== END 2019-02-01 09:28 | disposition home or self-care (01) ==
LOC: FECT 05:43
PROVIDERS: ATTEND Psychiatry & Neurology Psychiatry
PROC: GZB4ZZZ Other Electroconvulsive Therapy (ICD-10-PCS; principal; 2019-02-01 07:30)
DX: F31.9 Bipolar disorder, unspecified (principal)
CPT/HCPCS: 84703; 90870; 94760

== ENCOUNTER 2019-02-08 05:36 | Day surgery (SDC) | payer OTHER ==
[2019-02-08 06:57] VITALS: BMI 28.0
[2019-02-08] MEDS ORDERED: LACTATED RINGERS SOLUTION 1,000 ML IV SCH (08:00)
[2019-02-08 08:12] VITALS: TEMP 98.6
[2019-02-08 09:01] VITALS: BP 94/56; PULSE 75
== END 2019-02-08 09:03 | disposition home or self-care (01) ==
LOC: FECT 05:36
PROVIDERS: ATTEND Psychiatry & Neurology Psychiatry
PROC: GZB4ZZZ Other Electroconvulsive Therapy (ICD-10-PCS; principal; 2019-02-08 07:00)
DX: F32.9 Major depressive disorder, single episode, unspecified (principal)
CPT/HCPCS: 90870; 94760

== ENCOUNTER 2019-03-02 05:52 | Day surgery (SDC) | payer OTHER ==
[2019-02-28 16:31] VITALS: BMI 28.0
--- NOTE | 2019-03-02 07:41 | HP ---
Admitting History and Physical - Primary Care Physician PCP: Larry Horn - Admission Chief Complaint: Bipolar Disorder, Mixed Moderate History of Present Illness: 23 year old female with history bipolar disorder with major depression History Source: Patient Limitations to Obtaining History: No Limitations - Past Medical History [employer]: No: Alzheimer's, CVA, Dementia, Migraine, Multiple Sclerosis, Peripheral Neuropathy, Parkinson's, Seizure, Syncope, TIA, Vertigo, Other Cardiovascular: No: AFIB, Aneurysm, Aortic Insufficiency, Aortic Stenosis, CAD, CHF, Deep Vein Thrombosis, HTN, Hyperlipdemia, IA, Mitral Insufficiency, Mitral Stenosis, Murmur, Pulmonary Hypertension, Other Pulmonary: No: Asthma, Bronchitis, Cancer, COPD, O2 Dependent, Pneumonia, Previously Intubated, Pulmonary Embolus, Pulmonary Fibrosis, Sleep Apnea, Other Gastrointestinal: No: Ascites, Cancer, Constipation, Crohn's Disease, Diverticulitis, Diverticulosis, Esophageal Varices, Gastritis, GERD, GI Bleed, Hemorrhoids, Hiatal Hernia, Inflamatory Bowel Disease, Irritable Bowel Disease, Pancreatitis, Peptic Ulcer Disease, Ulcerative Colitis, Other Hepatobiliary: No: Cirrhosis, Cholelithiasis, Cholecystitis, Choledocholithiasis , Hepatitis A, Hepatitis B, Hepatitis C, Other Renal/: No: Renal Failure, Renal Inusuff, BPH, Cancer, Hematuria, Hemodialysis , Neurogenic Bladder, Renal Calculi, UTI, Other Reproductive: No: Ectopic , Endometriosis, Fibroids, PID, Polycystic Ovary Syndrome, Postmenopausal, Other ...LMP: 05/11/18 ...LMP Comment: HAS MIRENA/DOESNT HAVE MENSES ...: No Heme/Onc: No: Anemia, B12 Deficiency, Bleeding Disorder, Cancer, Current Chemotherapy, Current Radiation Therapy, Hemochromatosis, Hypercoaguable State, Myeloproliferative Synd, Sickle Cell Disease, Sickle Cell Trait, Thrombocytopenia, Other Infectious Disease: No: AIDS, C-Diff, Herpes Zoster, HIV, MRSA, STD's, Tuberculosis, VREF, Other Psych: Yes: Bipolar, Depression Musculoskeletal: No: Bursitis, Chronic low back pain, Hemiparesis, Hemiplegia, Osteoarthritis, Paraplegia, Other Rheumatology: No: Fibromyalgia, Gout, Lupus, Rheumatoid Arthritis, Sarcoidosis, Vasculitis, Other ENT: No: Allergic Rhinitis, Sinusitis, Other Endocrine: No: Dayton's Disease, Campo's Disease, Diabetes Insipidus, Diabetes Mellitus, Hyperparathyroidism, Hyperthyroidism, Hypothyroidism, Osteopenia, SIADH, Other - Past Surgical History Past Surgical History: No: None, AAA Repair, AICD, Amputation, Appendectomy, Arthrosocopy, AV Fistula/Graft, Bariatric Surgery, Breast Biopsy, Bypass, CABG, Carotid Endarterectomy, Cataract Removal, Cholecystectomy, Colectomy, Colonoscopy, Colostomy, Craniotomy, , Cystectomy, Hernia Repair, Hysterectomy, Ileal Conduit, Ileosotomy, Joint Replacement, Kidney Transplant, Laminectomy, Liver Transplant, Mastectomy, Nephrectomy, Oopherectomy, Orchiectomy, Permanent Pacemaker, Prostatectomy, Splenectomy, Stent, Thoracotomy , TURP, Tonsillectomy, Tubal Ligation, Upper Endoscopy, Valve Replacement, Vasectomy, Vein Stripping/Ligation Additional Past Surgical History: Multiple ECTs - Advance Directives Advance Directives: No: Living Will, Health Care Proxy, DNR, Organ Donor, Tissue Donor, MOLST - Smoking History Smoking history: Former smoker Have you smoked in the past 12 months: Yes Aproximately how many cigarettes per day: 0 If you are a former smoker, when did you quit?: PT STOPPED VAPING FOR SEVERAL MONTHS - Alcohol/Substance Use Hx Alcohol Use: No History of Substance Use: denies: None, Cocaine, Heroin, Marijuana, Prescription , Tranquilizers - Social History History of Recent Travel: No Home Medications - Allergies Allergies/Adverse Reactions: Allergies Allergy/AdvReac Type Severity Reaction Status Date / Time No Known Drug Allergies Allergy Verified 02/28/19 16:31 - Home Medications Home Medications: Ambulatory Orders Quetiapine Fumarate [Seroquel -] 100 mg PO HS 05/10/18 Alprazolam [Xanax] 0.25 mg PO Q8H PRN 12/21/18 Zolpidem Tartrate [Ambien] 10 mg PO HS 12/29/18 Family Medical History Family History: Unremarkable Review of Systems - Review of Systems Psychiatric: reports: Depression Physical Examination Vital Signs: Vital Signs Temperature 98.5 F 03/02/19 07:09 Pulse Rate 62 03/02/19 07:09 Respiratory Rate 18 03/02/19 07:09 Blood Pressure 102/66 03/02/19 07:09 O2 Sat by Pulse Oximetry (%) 99 03/02/19 07:09 Constitutional: Yes: Well Nourished, No Distress, Calm Eyes: Yes: WNL, Conjunctiva Clear, EOM Intact HENT: Yes: WNL, Atraumatic, Normocephalic Neck: Yes: WNL, Supple, Trachea Midline Cardiovascular: Yes: WNL, Regular Rate and Rhythm Respiratory: Yes: WNL, Regular, CTA Bilaterally Gastrointestinal: Yes: WNL, Normal Bowel Sounds ...Rectal Exam: Yes: Deferred Musculoskeletal: Yes: WNL Extremities: Yes: WNL Neurological: Yes: WNL, Alert, Oriented ...Motor Strength: WNL Psychiatric: Yes: WNL Labs: HCG negative Assessment/Plan 23 year old female with bipolar disorder, mixed moderate here for ECT. 1. Pt. medically optimized for ECT and anesthesia
[2019-03-02 09:28] VITALS: TEMP 98.1
[2019-03-02 09:29] VITALS: BP 108/78; PULSE 81
== END 2019-03-02 09:30 | disposition home or self-care (01) ==
LOC: FECT 05:52
PROVIDERS: ATTEND Psychiatry & Neurology Psychiatry
PROC: GZB4ZZZ Other Electroconvulsive Therapy (ICD-10-PCS; principal; 2019-03-02 07:30)
DX: F32.9 Major depressive disorder, single episode, unspecified (principal)
CPT/HCPCS: 81025; 90870; 94760

== ENCOUNTER 2019-04-27 05:46 | Day surgery (SDC) | payer OTHER ==
[2019-04-27 07:28] VITALS: BMI 27.8
[2019-04-27 09:36] VITALS: TEMP 98.1
[2019-04-27 09:37] VITALS: BP 112/72; PULSE 76
--- NOTE | 2019-04-27 10:31 | HP ---
CHIEF COMPLAINT: Major depressive disorder PCP: None Primary Psychiatrist: Dr. Dumont [place] HISTORY OF PRESENT ILLNESS: 22 year-old female with a PMH significant for bipolar and major depressive disorders, presents today for ECT therapy. Patient's first ECT therapy was on at [facility]. Recent Events: * none reported PAST MEDICAL HISTORY: Bipolar disorder Major depressive disorder PAST SURGICAL HISTORY: None Social History: lives in [place] with mother, unemployed Smoking: denies Alcohol: denies Drugs: denies Family history: non-contributory Allergies No Known Drug Allergies Allergy (Verified 02/28/19 16:31) HOME MEDICATIONS: Home Medications Medication Instructions Recorded Quetiapine Fumarate [Seroquel -] 100 mg PO HS 05/10/18 Alprazolam [Xanax] 0.25 mg PO Q8H PRN 12/21/18 Zolpidem Tartrate [Ambien] 10 mg PO HS 12/29/18 REVIEW OF SYSTEMS CONSTITUTIONAL: Absent: fever, chills, diaphoresis, generalized weakness, malaise, loss of appetite, weight change HEENT: Absent: rhinorrhea, nasal congestion, throat pain, throat swelling, difficulty swallowing, mouth swelling, ear pain, eye pain, visual changes CARDIOVASCULAR: Absent: chest pain, syncope, palpitations, irregular heart rate, lightheadedness , peripheral edema RESPIRATORY: Absent: cough, shortness of breath, dyspnea with exertion, orthopnea, wheezing, stridor, hemoptysis GASTROINTESTINAL: Absent: abdominal pain, abdominal distension, nausea, vomiting, diarrhea, constipation, melena, hematochezia GENITOURINARY: Absent: dysuria, frequency, urgency, hesitancy, hematuria, flank pain, genital pain MUSCULOSKELETAL: Absent: myalgia, arthralgia, joint swelling, back pain, neck pain SKIN: Absent: rash, itching, pallor HEMATOLOGIC/IMMUNOLOGIC: Absent: easy bleeding, easy bruising, lymphadenopathy, frequent infections ENDOCRINE: Absent: unexplained weight gain, unexplained weight loss, heat intolerance, cold intolerance NEUROLOGIC: Absent: headache, focal weakness or paresthesias, dizziness, unsteady gait, seizure, mental status changes, bladder or bowel incontinence PHYSICAL EXAMINATION Vital Signs - 24 hr 04/27/19 04/27/19 04/27/19 07:21 09:00 09:30 Temperature 98 F 98.1 F Pulse Rate 75 80 76 Respiratory 18 18 18 Rate Blood Pressure 106/67 107/77 112/72 O2 Sat by Pulse 100 97 98 Oximetry (%) 04/27/19 09:38 Temperature 98.1 F Pulse Rate 76 Respiratory 18 Rate Blood Pressure 112/72 O2 Sat by Pulse Oximetry (%) GENERAL: Awake, alert, and fully oriented, in no acute distress. HEAD: Normal with no signs of trauma. EYES: Pupils equal, round and reactive to light, sclera anicteric, conjunctiva clear. LUNGS: Breath sounds equal, clear to auscultation bilaterally. No wheezes, and no crackles. No accessory muscle use. HEART: Regular rate and rhythm, normal S1 and S2 ABDOMEN: Soft, nontender, not distended MUSCULOSKELETAL: Normal range of motion at all joints. No bony deformities or tenderness. No CVA tenderness. UPPER EXTREMITIES: 2+ pulses, warm, well-perfused. No cyanosis. No clubbing. No peripheral edema. LOWER EXTREMITIES: 2+ pulses, warm, well-perfused. No calf tenderness. No peripheral edema. NEUROLOGICAL: Cranial nerves II-XII intact. Normal speech. ASSESSMENT/PLAN: 22 year-old female with a PMH significant for bipolar and major depressive disorders, presents today for ECT therapy. Cardiac --no cardiac history --Revised Cardiac Risk Index for Pre-Operative Risk: 0 points, 0.4% risk of major cardiac event Pulmonary --no pulmonary history Neurological --no neurological or neurosurgical history; no history of trauma Anesthesia --no reported problems with anesthesia ECT is a low risk procedure. The relative benefits of the planned procedure outweigh the relative risks for this patient at this time. Visit type - Emergency Visit Emergency Visit: No - New Patient This patient is new to me today: Yes Date on this admission: 05/08/19 - Critical Care Critical Care patient: No
== END 2019-04-27 09:39 | disposition home or self-care (01) ==
LOC: FECT 05:46
PROVIDERS: ATTEND Psychiatry & Neurology Psychiatry
PROC: GZB4ZZZ Other Electroconvulsive Therapy (ICD-10-PCS; principal; 2019-04-27 07:30)
DX: F31.89 Other bipolar disorder (principal)
CPT/HCPCS: 81025; 90870; 94760

== ENCOUNTER → 2019-05-24 | Day surgery (SDC) | payer OTHER ==
[2019-05-24 09:12] VITALS: BMI 27.8
[2019-05-24 09:18] VITALS: TEMP 97.6
[2019-05-24 09:42] VITALS: BP 106/69; PULSE 86
[2019-05-24 13:04] LABS: ALBUMIN 3.9 g/dl (3.4-5.0); CREATININE 0.6 mg/dl (0.55-1.3); MAGNESIUM 1.9 mg/dL (1.8-2.4); POTASSIUM 4.2 mmol/L (3.5-5.1)
[2019-05-24 13:05] LABS: BILIRUBIN,TOTAL 0.2 mg/dl (0.2-1)
[2019-05-24 13:07] LABS: HEMOGLOBIN 12.1 GM/dl (10.7-15.3); RBC 3.89 M/mm3 (3.60-5.2); WHITE BLOOD COUNT 7.7 K/mm3 (4.0-10.8)
[2019-05-24 13:08] LABS: MCH 30.9 pg (25.7-33.7); MCHC 34.4 g/dl (32.0-36.0); MEAN PLT VOLUME 6.9 fl (7.5-11.1); PLATELET COUNT 294 K/MM3 (134-434); RDW 11.9 % (11.6-15.6)
--- NOTE | 2019-05-26 11:54 | EKG ---
Test Reason : Blood Pressure : / mmHG Vent. Rate : 082 BPM Atrial Rate : 082 BPM P-R Int : 158 ms QRS Dur : 092 ms QT Int : 382 ms P-R-T Axes : 054 080 060 degrees QTc Int : 446 ms NORMAL SINUS RHYTHM NORMAL ECG WHEN COMPARED WITH ECG OF 10-NOV-2018 06:53, CRITERIA FOR LATERAL INFARCT ARE NO LONGER PRESENT Confirmed by Cornell Evangelista MD ([id number]) on 05/26/2019 11:54:13 AM Referred By: Larry Horn Confirmed By:Cornell Evangelista MD
== END | disposition home or self-care (01) ==
LOC: FECT 07:23
PROVIDERS: ATTEND Psychiatry & Neurology Psychiatry
PROC: GZB4ZZZ Other Electroconvulsive Therapy (ICD-10-PCS; principal; 2019-05-24 07:00)
DX: F32.9 Major depressive disorder, single episode, unspecified (principal)
CPT/HCPCS: 36415; 80053; 81025; 83735; 85027; 90870; 93005; 94760